=== PATIENT | male | born 1975 | race Asian ===

== ENCOUNTER 2024-09-23 12:12 | Outpatient (AMB) | payer BC, SELFPAY ==
[2024-09-23 12:23] VITALS: BP 128/62; PULSE 64; O2SAT 98; BMI 26.9
--- NOTE | 2024-09-23 12:23 | A.OFFPC_ITS ---
Vital Signs 09/23/24 12:23 Height 5 ft 5.5 in Weight 164 lb BMI 26.9 BP 128/62 Blood Pressure Location Lt brachial Position Sitting Pulse 64 Pulse Source Pulse Oximeter Pulse Oximetry (%) 98 Oxygen Delivery Method Room Air Intake Visit Reasons: annual exam Allergies No Known Allergies Allergy (Verified 09/23/24 12:24) Medication List - Last Reconciled 09/23/24 by Joshua Orellana MD No Known Home Meds Tobacco use date assessed: 09/23/24 Dental Screening Dental Screen Date: 09/23/24 Did you have a dental visit in the last 12 months?: No Did you have a dental problem in the last 6 months where you did not have access to dental care?: Yes Was dental information given to patient?: Patient has dentist HPI annual exam HPI Details 49 year old overweight male with a histo ry of hypercholesterolemia coming in for physical exam. Last seen in April 2023. Patient was advised colon cancer screening. Review of the notes in August 15 patient had cervical spine MR showing central and right paracentral disc extrusion with minimal cord deformity at C3-4, C4-5, at C5-C6 shallow slight right paracentral disc protrusion. [facility] Medical History (Updated 09/23/24 @ 13:21 by Joshua Orellana MD) Colon cancer screening Family History (Updated 09/23/24 @ 12:41 by Joshua Orellana MD) Mother Cholangiocarcinoma Myocardial infarction Hepatitis B Sister End stage renal disease Brother End stage renal disease Maternal Grandfather No problems noted. Social History (Updated 09/23/24 @ 12:41 by Joshua rOellana MD) Housing: House Alcohol intake: current Comment: 3x a week 1 drink Patient Tobacco Use Status: Former Tobacco user Tobacco use type: Cigarette Cigarette Packs Per Day: 4 Years Smoked: quit 2014 vape quit vaping 10/2022 e-Cigarette/Vaping Use: Former Use Second Hand Smoke Exposure: Yes service: No Current occupational status: employed Cognitive needs: No Hearing needs: No Vision needs: Yes Questionnaire PHQ-9 Over the last 2 weeks, how often have you been bothered by any of the following problems? 1. Little interest or pleasure in doing things: not at all 2. Feeling down, depressed, or hopeless: not at all 3. Trouble falling or staying asleep, or sleeping too much: not at all 4. Feeling tired or having little energy: not at all 5. Poor appetite or overeating: not at all 6. Feeling bad about yourself - or that you are a failure or have let yourself or your family down: not at all 7. Trouble concentrating on things, such as reading the newspaper or watching television: not at all 8. Moving or speaking so slowly that other people could have noticed. Or the opposite - being so fidgety or restless that you have been moving around a lot more than usual: not at all 9. Thoughts that you would be better off or of hurting yourself in some way: not at all Total score: 0 Depression Screening Interpretation: Negative Depression Screening Done: Yes Source: Developed by Drs. Cornel Sommers, Tamara Swanson, Yefri Garzon and colleagues, with an educational marvin from [employer]. Thrive Questionnaire Date Thrive assessed: 04/17/23 I am a: Patient What is your living situation today?: I choose not to answer this question Within the past 12 months, did the food you bought not last and you didn't have the money to get more?: I choose not to answer this question Within the past 12 months, did you worry whether your food would run out before you got money to buy more?: I choose not to answer this question Do you have trouble paying for medicines?: I choose not to answer this question Do you have trouble getting transportation to medical appointments?: I choose not to answer this question Do you have trouble paying your heating and electricity bill?: I choose not to answer this question Do you have trouble taking care of your child, family member or friend?: I choose not to answer this question Do you have trouble with day-to-day activities such as bathing, preparing meals, shopping, managing finances, etc.?: I choose not to answer this question Are you currently unemployed and looking for a job?: I choose not to answer this question Are you interested in more education?: I choose not to answer this question Please select the resources that you would like help with: None Currently or been in a relationship where the following occur: I choose not to answer THRIVE Score: 0 AUDIT C Alcohol Use Questionnaire (AUDIT-C) 1. How often do you have a drink containing alcohol?: 2-3 times a week 2. How many drinks containing alcohol do you have on a typical day when you are drinking?: 1 or 2 3. How often do you have six or more drinks on one occasion?: Never Total Score: 3 YAN-7 AMB Questionnaire YAN-7 Date YAN - 7 assessed: 09/23/24 Feeling nervous, anxious, or on edge: 3 = Nearly every day Not being able to stop or control worryin = Several days Worrying too much about different things: 1 = Several days Trouble relaxin = Nearly every day Being so restless that it is hard to sit still: 3 = Nearly every day Becoming easily annoyed or irritable: 1 = Several days Feeling afraid as if something awful might happen: 1 = Several days Total YAN-7 score (0-4 normal; 5-9 mild; 10-14 moderate; 15-21 severe): 13 Source: Developed by Drs. Cornel Sommers, Tamara Swanson, Yefri Garzon and colleagues, with an educational marvin from [employer]. YAN-7 Assessment Billing YAN-7 Assessment Tool: YAN-7 Assessment 02090 Review of Systems Const Denies poor appetite and Denies weakness Eyes Denies no additional complaints ENT Reports Normal hearing present, Denies dizziness, Denies nasal congestion, Denies tinnitus and Denies sore throat Card Denies chest pain, Denies syncope, Denies rapid heart rate and Denies dyspnea Resp Denies cough and Denies dyspnea GI Denies change in stool character, Reports constipation, Denies diarrhea, Denies nausea and Denies vomiting Denies dysuria and Denies urinary frequency Neuro Reports Normal hearing present, Denies confusion, Denies dizziness, Denies syncope and Denies weakness Psych Denies confusion Physical exam (Primary Care) Vital Signs: Last Vital Signs Pulse 64 09/23/24 12:23 BP 128/62 09/23/24 12:23 Pulse Ox 98 09/23/24 12:23 Oxygen Delivery Method Room Air 09/23/24 12:23 BMI result Body Mass Index 26.9 Tobacco/Smoking Status: Tobacco use Status Tobacco use date assessed 09/23/24 09/23/24 12:30 Patient Tobacco Use Status Former Tobacco user 09/23/24 12:30 Tobacco use type Cigarette 09/23/24 12:30 e-Cigarette/Vaping Use Former Use 09/23/24 12:30 PHQ-9: PHQ-9 Score PHQ-9: Total score 0 09/23/24 12:30 Depression Screening Interpretation: Negative Thrive Assessment: Date of Thrive Assessment Date Thrive assessed 04/17/23 09/23/24 12:30 Currently or been in a relationship where the following occur: I choose not to answer Const General: No confusion Orientation/consciousness: No confusion HENMT Head: Yes normocephalic Ears: external ears normal and TM's normal bilaterally Face and sinus: Yes normal facial exam Mouth: moist mucous membranes Throat: Yes tonsils normal Eyes Conjunctivae: conjunctivae normal Pupils: Equal, round and reactive pupils present and Pupil accommodation reflex normal Direct Ophthalmoscopy: normal light reflex Neck Neck: No lymphadenopathy Thyroid: Thyroid normal Chest Chest palpation & inspection: normal inspection of the chest Resp Effort & Inspection: normal respiratory effort and no audible wheezes Auscultation: clear to auscultation bilaterally, no crackles, no wheezes and lung sounds not diminished Cardio Rate: regular rate Rhythm: regular rhythm Peripheral pulses: radial pulses present and dorsalis pedis present GI Palpation (GI): no masses Auscultation: normal bowel sounds and normoactive bowel sounds Rectal Exam - Male: Yes deferred Skin General skin exam: no rashes or lesions noted Rashes: no rashes Neuro General: No confusion Cranial nerves: Yes Equal, round and reactive pupils present and Yes Normal hearing present Cognition (Neuro): normal cognition Gait exam (Neuro): Normal gait present Motor exam (neuro): 5/5 motor strength present throughout Deep tendon reflexes (DTR's): Right brachioradialis reflex intensity grade: 2+, Left brachioradialis reflex intensity grade: 2+, Right patellar reflex intensity grade: 2+ and Left patellar reflex intensity grade: 2+ Extrem General: No edema Coding Level of Care Code Est Pt Prev Care 40-64y(99476) Diagnoses Cervical disc disorder M50.90 Annual physical exam Z00.00 Gastroesophageal reflux disease without esophagitis K21.9 Esophagitis presence: without esophagitis Hypercholesterolemia E78.00 Lumbar disc disorder M51.9 Additional Codes YAN-7 Assessment Billing - YAN-7 Assessment Tool: YAN-7 Assessment 35091 ([id number]) Assessment & Plan Assessment & Plan (1) Cervical disc disorder: Comment: Cervical spine MR 08/15/2024 showing C3-4 central and right paracentral disc extrusion minimal cord deformity, C4-5 central disc extrusion with minimal cord deformity, C5-6 shallow slight right paracentral disc extrusion. Code(s): M50.90 - Cervical disc disorder, unspecified, unspecified cervical region Category: Medical Plan: Discussion about management, keep active avoid heavy lifting. (2) Annual physical exam: Code(s): Z00.00 - Encounter for general adult medical examination without abnormal findings Category: Medical Plan: Patient is advised to eat healthy, keep well hydrated, keep active and have adequate sleep. (3) GERD (gastroesophageal reflux disease): Code(s): K21.9 - Gastro-esophageal reflux disease without esophagitis Category: Medical Qualifiers: Esophagitis presence: without esophagitis Qualified Code(s): K21.9 - Gastro-esophageal reflux disease without esophagitis Plan: Avoid the foods that causes that usually spicy foods, tomato products, juices, coffee, soda and foods that your sensitive to. After eating do not lie down, allow 3-4 hours before in lie down. And keep the head of bed above 30 degrees to avoid the acid from going up. (4) Hypercholesterolemia: Code(s): E78.00 - Pure hypercholesterolemia, unspecified Category: Medical Plan: Avoid fried foods, chicken skin, eggs, butter margarine, pastries and meat. Be it pork or beef they have a lot of cholesterol (5) Lumbar disc disorder: Code(s): M51.9 - Unspecified thoracic, thoracolumbar and lumbosacral intervertebral disc disorder Category: Medical Plan: Keep active and do stretches in the morning. The avoid lifting more than 50 lb
== END 2024-09-23 13:23 | disposition home or self-care (01) ==
PROVIDERS: PCP Internal Medicine; Visit Provider Internal Medicine
DX: M50.90 Cervical disc disorder, unspecified, unspecified cervical region (principal); Z00.00 Encounter for general adult medical examination without abnormal findings; K21.9 Gastro-esophageal reflux disease without esophagitis; E78.00 Pure hypercholesterolemia, unspecified; M51.9 Unspecified thoracic, thoracolumbar and lumbosacral intervertebral disc disorder

== ENCOUNTER → 2024-09-23 12:12 | Outpatient (BNVA) | payer BC, SELFPAY | PROVIDERS: PCP Internal Medicine; Visit Provider Internal Medicine | DX: Z00.00 Encounter for general adult medical examination without abnormal findings (principal); M50.90 Cervical disc disorder, unspecified, unspecified cervical region; K21.9 Gastro-esophageal reflux disease without esophagitis; E78.00 Pure hypercholesterolemia, unspecified; M51.9 Unspecified thoracic, thoracolumbar and lumbosacral intervertebral disc disorder | CPT/HCPCS: 96127 ==

== ENCOUNTER 2025-09-25 13:00 | Outpatient (AMB) | payer BC, SELFPAY ==
[2025-09-25 13:22] VITALS: BP 128/76; PULSE 90; RESP 18; O2SAT 98; BMI 27.3
--- NOTE | 2025-09-25 13:22 | A.OFFPC_ITS ---
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 hopper itchy (state brother had same problem having renal problem) HPI Comments History of Present Illness Details History of Present Illness The patient is a 50 year old individual presenting for a physical examination. The patient has a history of hypercholesterolemia, noted on blood work from , and gastroesophageal reflux disease. A Cologuard test completed in August 2023 was negative. The patient has gained 10 pounds since the last visit. Since last year, the patient has developed itchy skin on both shins, which has been diagnosed as eczema. This symptom is concerning to the patient due to a brother who had similar itchy shins and was later diagnosed with kidney failure requiring dialysis. The patient also reports occasional, non-postural dizziness that can induce nausea, and this is sometimes associated with migraines that cause numbness on half of the patient's face. These symptoms are not worsening. Family history is significant for a mother with gallbladder cancer and a heart attack, a brother on dialysis for kidney failure, and a sister with IgA nephropathy. The patient takes no medications, has an allergy to pitted fruits, and had a recent tooth extraction. The patient reports quitting cigarettes and nicotine vapes, drinks alcohol occasionally, and uses a cannabis vape to aid with sleep. The patient's last eye exam was two years ago, and reading vision has since worsened. Health Maintenance The patient's Cologuard screening from 2022 was negative. The patient was counseled on medication safety, specifically to avoid NSAIDs (ibuprofen, naproxen) due to potential kidney strain and to prefer Tylenol. A discussion was held regarding hernia risk, advising the patient to avoid strain from heavy lifting. Social History - Substance Use: The patient reports no longer smoking cigarettes or using nicotine vapes. - The patient drinks alcohol occasionall y, such as having a beer every now and then. - The patient uses a cannabis vape for s leep. - Weight: The patient's weight has incre ased by 10 pounds since the last visit. - Diet: The patient reports eating less recently but is trying to eat healthy. Results - Lab Work (current visit): Blood work w as drawn; results are pending. - Lab Work (2021): Showed elevated jairo sterol. - Colon Cancer Screening: Cologuard test was negative in August 2023. [facility] Medical History Colon cancer screening Family History Mother Cholangiocarcinoma Myocardial infarction Hepatitis B Sister End stage renal disease Brother End stage renal disease Maternal Grandfather No problems noted. Social History Housing: House Alcohol intake: current Comment: 3x a week 1 drink Patient Tobacco Use Status: Former Tobacco user Tobacco use type: Cigarette Cigarette Packs Per Day: 4 Years Smoked: quit 2014 vape quit vaping 10/2022 e-Cigarette/Vaping Use: Former Use Second Hand Smoke Exposure: Yes service: No Current occupational status: employed Cognitive needs: No Hearing needs: No Vision needs: Yes Questionnaire PHQ-9 Over the last 2 weeks, how often have you been bothered by any of the following problems? 1. Little interest or pleasure in doing things: several days 2. Feeling down, depressed, or hopeless: not at all 3. Trouble falling or staying asleep, or sleeping too much: not at all 4. Feeling tired or having little energy: not at all 5. Poor appetite or overeating: not at all 6. Feeling bad about yourself - or that you are a failure or have let yourself or your family down: not at all 7. Trouble concentrating on things, such as reading the newspaper or watching television: not at all 8. Moving or speaking so slowly that other people could have noticed. Or the opposite - being so fidgety or restless that you have been moving around a lot more than usual: not at all 9. Thoughts that you would be better off or of hurting yourself in some way: not at all Total score: 1 Source: Developed by Drs. Cornel Sommers, Tamara Swanson, Yefri Garzon and colleagues, with an educational marvin from [employer]. Thrive Questionnaire Date Thrive assessed: 09/25/25 I am a: Patient What is your living situation today?: I have a steady place to live Within the past 12 months, did the food you bought not last and you didn't have the money to get more?: Often true Within the past 12 months, did you worry whether your food would run out before you got money to buy more?: Often true Do you have trouble paying for medicines?: Yes Do you have trouble getting transportation to medical appointments?: No Do you have trouble paying your heating and electricity bill?: Yes Do you have trouble taking care of your child, family member or friend?: No Do you have trouble with day-to-day activities such as bathing, preparing meals, shopping, managing finances, etc.?: No Are you currently unemployed and looking for a job?: No Are you interested in more education?: Yes Please select the resources that you would like help with: Utilities Currently or been in a relationship where the following occur: No concerns reported THRIVE Score: 3 AUDIT C Alcohol Use Questionnaire (AUDIT-C) 1. How often do you have a drink containing alcohol?: 2-3 times a week 2. How many drinks containing alcohol do you have on a typical day when you are drinking?: 1 or 2 3. How often do you have six or more drinks on one occasion?: Never Total Score: 3 YAN-7 AMB Questionnaire YAN-7 Date YAN - 7 assessed: 09/25/25 Feeling nervous, anxious, or on edge: 0 = Not at all Not being able to stop or control worryin = Several days Worrying too much about different things: 1 = Several days Trouble relaxin = Several days Being so restless that it is hard to sit still: 0 = Not at all Becoming easily annoyed or irritable: 0 = Not at all Feeling afraid as if something awful might happen: 3 = Nearly every day Total YAN-7 score (0-4 normal; 5-9 mild; 10-14 moderate; 15-21 severe): 6 Source: Developed by Drs. Cornel Sommers, Tamara Swanson, Yefri Garzon and colleagues, with an educational marvin from [employer]. Review of Systems Narrative Review of Systems - General: Reports occasional dizziness with associated nausea, not related to position changes. - Denies syncope, fever. - HEENT: Reports worsening vision for reading but denies issues with distance vision. - Reports good hearing and denies issues with swallowing. - Neurological: Reports occasional migraines with hemifacial numbness. - Cardiovascular: Denies chest pain, heaviness, or discomfort. - Respiratory: Denies waking up short of breath. - Gastrointestinal: Reports occasional heartburn, triggered by foods like pasta and tomatoes, which is not worsening. - Denies nausea or vomiting, except in association with dizziness. - Reports no problems with bowel movements. - Denies hemorrhoids or blood in the stool. - Genitourinary: Reports waking 1-2 times per night to urinate. - Denies dysuria or changes in urine color. - Integumentary: Reports itching on shins for the past year. Const Denies poor appetite and Denies weakness Eyes Denies no additional complaints ENT Reports Normal hearing present, Denies dizziness, Denies nasal congestion, Denies tinnitus and Denies sore throat Card Denies chest pain, Denies syncope, Denies rapid heart rate and Denies dyspnea Resp Denies cough and Denies dyspnea GI Denies change in stool character, Reports constipation, Denies diarrhea, Denies nausea and Denies vomiting Denies dysuria and Denies urinary frequency Neuro Reports Normal hearing present, Denies confusion, Denies dizziness, Denies synco pe and Denies weakness Psych Denies confusion Physical exam (Primary Care) Vital Signs: Last Vital Signs Pulse 90 09/25/25 13:22 Resp 18 09/25/25 13:22 BP 128/76 09/25/25 13:22 Pulse Ox 98 09/25/25 13:22 Oxygen Delivery Method Room Air 09/25/25 13:22 BMI result Body Mass Index 27.3 Tobacco/Smoking Status: Tobacco use Status Tobacco use date assessed 09/25/25 09/25/25 13:27 Patient Tobacco Use Status Former Tobacco user 09/25/25 13:22 Tobacco use type Cigarette 09/25/25 13:22 e-Cigarette/Vaping Use Former Use 09/25/25 13:22 PHQ-9: PHQ-9 Score PHQ-9: Total score 1 09/25/25 13:28 Thrive Assessment: Date of Thrive Assessment Date Thrive assessed 09/25/25 09/25/25 13:27 Currently or been in a relationship where the following occur: No concerns reported Narrative Physical Exam General: Cooperative, healthy appearing, comfortable, no acute distress, and well developed Orientation: Patient oriented x3 Limitations: No limitations Head: Normal to inspection Ears: Hearing grossly normal bilaterally Nose: Normal external nose present Face and sinus: Normal facial exam Eyes: Appearance normal, both eyes and all related structures Neck: Normal visual inspection and Yes full ROM Respiratory: Normal respiratory effort and able to speak in complete sentences. Clear to auscultation bilaterally Cardiovascular: Regular rate and rhythm. Normal S1 and S2 GI: Normal to inspection. Soft to palpation and nontender Skin: Eczema noted on the hopper, patient reports itchiness Neuro: Patient oriented x3 Extremities: Normal to inspection Const General: No confusion Orientation/consciousness: No confusion HENMT Head: Yes normocephalic Ears: external ears normal and TM's normal bilaterally Face and sinus: Yes normal facial exam Mouth: moist mucous membranes Throat: Yes tonsils normal Eyes Conjunctivae: conjunctivae normal Pupils: Equal, round and reactive pupils present and Pupil accommodation reflex normal Direct Ophthalmoscopy: normal light reflex Neck Neck: No lymphadenopathy Thyroid: Thyroid normal Chest Chest palpation & inspection: normal inspection of the chest Resp Effort & Inspection: normal respiratory effort and no audible wheezes Auscultation: clear to auscultation bilaterally, no crackles, no wheezes and lung sounds not diminished Cardio Rate: regular rate Rhythm: regular rhythm Peripheral pulses: radial pulses present and dorsalis pedis present GI Palpation (GI): no masses Auscultation: normal bowel sounds and normoactive bowel sounds Rectal Exam - Male: Yes deferred Skin General skin exam: no rashes or lesions noted Rashes: no rashes Neuro General: No confusion Cranial nerves: Yes Equal, round and reactive pupils present and Yes Normal hearing present Cognition (Neuro): normal cognition Gait exam (Neuro): Normal gait present Motor exam (neuro): 5/5 motor strength present throughout Deep tendon reflexes (DTR's): Right brachioradialis reflex intensity grade: 2+, Left brachioradialis reflex intensity grade: 2+, Right patellar reflex intensity grade: 2+ and Left patellar reflex intensity grade: 2+ Extrem General: No edema Coding Level of Care Code Est Pt Prev Care 40-64y(61503) Diagnoses Annual physical exam Z00.00 Hypercholesterolemia E78.00 Gastroesophageal reflux disease without esophagitis K21.9 Esophagitis presence: without esophagitis Assessment & Plan Assessment & Plan (1) Annual physical exam: Code(s): Z00.00 - Encounter for general adult medical examination without abnormal findings Category: Medical Plan: Patient is advised to eat healthy, keep well hydrated, keep active and have adequate sleep. (2) Hypercholesterolemia: Code(s): E78.00 - Pure hypercholesterolemia, unspecified Category: Medical Plan: Avoid fried foods, chicken skin, eggs, butter margarine, pastries and meat. Be it pork or beef they have a lot of cholesterol LDL goal of l less than 130 and triglyceride of less than 150 (3) GERD (gastroesophageal reflux disease): Code(s): K21.9 - Gastro-esophageal reflux disease without esophagitis Category: Medical Qualifiers: Esophagitis presence: without esophagitis Qualified Code(s): K21.9 - Gastro-esophageal reflux disease without esophagitis Plan: Avoid the foods that causes that usually spicy foods, tomato products, juices, coffee, soda and foods that your sensitive to. After eating do not lie down, allow 3-4 hours before in lie down. And keep the head of bed above 30 degrees to avoid the acid from going up. Plan Plan Patient was informed and verbally consented to the use of an ambient scribe for clinic note documentation during this visit. 1. Annual Physical Examination The patient presents for a routine physical exam. Blood work was drawn today and results are pending; these will be reviewed upon receipt. Counseling was provided on healthy eating, including avoiding processed foods, maintaining adequate hydration, staying active, and managing weight. The patient was instructed to follow up if results are not received within one to two weeks. 2. Eczema The patient reports itchy skin on the shins for the past year, consistent with eczema. There is concern for underlying kidney disease due to family history, but I explained that eczema can develop independently. Pending lab results will be checked for kidney function. The patient was advised to continue using lotion and avoid scratching. 3. Hypercholesterolemia The patient has a history of elevated cholesterol from 2021. Current lipid status will be evaluated with the pending blood work results. Management will be determined after reviewing the new lab values. 4. Gastroesophageal Reflux Disease The patient reports stable, intermittent heartburn triggered by certain foods like pasta and tomatoes. Counseling was provided on avoiding trigger foods, p articularly at nighttime, to manage symptoms. 5. Dizziness The patient describes occasional episodes of dizziness, not related to position changes, sometimes associated with migraines and nausea. As the symptoms are not worsening, the plan is to continue monitoring. Discussion Notes I discussed the findings of the physical exam, which were largely normal. Regarding the patient's itchy shins, I explained that it appears to be eczema, though I acknowledged the patient's concern about a potential link to kidney problems given the family history. I informed the patient that we will review the pending blood work to check kidney function. I also explained some typical symptoms of kidney issues to be aware of, such as swelling or changes in urine. We discussed management of GERD through diet, including avoiding trigger foods like tomatoes and soda, especially at night. I counseled the patient on medication safety, advising against NSAIDs (Ibuprofen, Aleve) to protect the kidneys and recommending Tylenol as a safer alternative for pain. We also talked about lifestyle modifications, including drinking enough water, eating healthy, and avoiding heavily processed foods, which have been linked to increased cancer risks. Finally, I explained how inguinal hernias can develop from excessive straining or lifting and advised caution. The plan is to await the blood work results and have the patient follow up if they have not heard back in 1-2 weeks. Patient Instructions - Continue to apply lotion, such as Xenofil, to your itchy shins and try to avoid scratching the area. - We are waiting for your lab results from the blood drawn today. If you do not hear from our office within one to two weeks, please give us a call to follow up. - To help prevent heartburn, avoid spicy foods, tomato products, juices, and soda, especially close to bedtime. - For pain, it is safer for your kidneys to take Tylenol (acetaminophen) instead of medications like Advil, Motrin (ibuprofen), or Aleve (naproxen). - Maintain a healthy lifestyle by drinking plenty of water, eating healthy foods, and keeping yourself active. - Be careful with heavy lifting to avoid injury, such as a hernia. If an item is meant for two people to lift, please ask for help. - You can send messages to the office through the patient portal. Please ask the lead front end developer staff how to get access.
== END 2025-09-25 14:03 | disposition home or self-care (01) ==
PROVIDERS: PCP Internal Medicine; Visit Provider Internal Medicine
DX: Z00.00 Encounter for general adult medical examination without abnormal findings (principal); E78.00 Pure hypercholesterolemia, unspecified; K21.9 Gastro-esophageal reflux disease without esophagitis